=== PATIENT | female | born 1940 | race Caucasian/White ===

== ENCOUNTER 2019-05-10 13:19 | Emergency (ER) | payer OTHER ==
[~2019-05-10] VITALS: Ht 170.2 cm; Wt 58.1 kg
[2019-05-10 13:41] LABS: ABSOLUTE NEUTROPHILS 4.2 thou/uL (1.4-8.2); EOSINOPHILS 5.2 % (0.0-3.0); HEMATOCRIT 35.9 % (37.0-47.0); HEMOGLOBIN 11.5 gm/dL (12.0-15.0); LYMPHOCYTES 22.2 % (24.0-44.0); MCH 24.1 pg (26.0-34.0); MCHC 31.9 g/dL (28.0-37.0); MCV 75.6 fL (80.0-100.0); MONOCYTES 11.3 % (1.0-8.0); PLATELET COUNT 254 thou/uL (150-400); POLYS 60.3 % (36.0-66.0); RBC 4.75 mil/uL (4.20-5.00); RDW 17.4 % (10.5-14.5)
[2019-05-10 13:50] LABS: ANION GAP 7 mmol/L (7-16); BUN 22 mg/dL (7-18); CALCIUM 8.9 mg/dL (8.5-10.1); CHLORIDE 103 mmol/L (98-107); CO2 29 mmol/L (21-32); CREATININE 0.9 mg/dL (0.6-1.0); GLUCOSE 89 mg/dL (74-106); POTASSIUM 4.1 mmol/L (3.5-5.1); SODIUM 139 mmol/L (136-145)
[2019-05-10 14:00] LABS: ALBUMIN 3.2 g/dL (3.4-5.0); SGOT 20 U/L (15-37); SGPT 21 U/L (30-65); TOTAL BILIRUBIN 0.2 mg/dL (<0.1-1.0); TOTAL PROTEIN 7.5 g/dL (6.4-8.2); TROPONIN-I <0.06 ng/mL (<0.06)
[2019-05-10 16:28] VITALS: BP 160/67
--- NOTE | 2019-05-12 16:06 | EKG ---
[address] [address] ELECTROCARDIOGRAM REPORT Name: ANDRZEJDESTIN Room #: DEP [facility] [id number] Admission: 05/10/19 Attend Phys: Discharge: 05/10/19 Date of : 38 Report #: [id number] THIS REPORT FOR: //name// [facility] ED Test Date: 2019-05-10 Test Time: 13:24:56 Pat Name: DESTIN DONNELLY Department: Room: Gender: F Public Welfare Worker: NICOLETTE : 1940 Requested By: Ankit Matta Order Number: [id number] MD: Jaren Belcher Measurements Intervals [place] Rate: 69 P: 79 [place]: 198 QRS: 62 QRSD: 85 T: 56 QT: 428 QTc: 459 Interpretive Statements Sinus rhythm Consider left atrial enlargement No previous ECG available for comparison Electronically Signed On 05-12-2019 16:05:58 [employer]IOR SALES DIRECTOR by Jaren Belcher [email or web address] <ELECTRONICALLY SIGNED> By: Jaren Belcher MD 05/12/19 1605 [id number] 1324 MD JAZIMNE Elam
== END 2019-05-10 16:30 | disposition home or self-care (01) ==
LOC: ER 13:19
PROVIDERS: Emergency Medicine
DX: R07.9 Chest pain, unspecified (principal); G30.9 Alzheimer's disease, unspecified